=== PATIENT | female | born 1990 | race Caucasian/White ===

== ENCOUNTER 2019-07-24 01:24 | Day surgery (SDC) | payer OTHER, SELFPAY ==
[2019-07-09 09:53] VITALS: BMI 25.3
[2019-07-24 10:15] VITALS: BP 104/60; PULSE 55; RESP 18; TEMP 36.9; O2SAT 100
--- NOTE | 2019-07-24 11:09 | WPDANESEPPF ---
Anes - Initial Pre Proc Eval Procedure: Operation Date: 07/24/19 12:00 Proposed Procedures p Bilateral Breast Mastopexy - Valdo Barnard MD s Bilateral Breast Implant Exchange - Valdo Barnard MD Date/Time: 07/24/19 11:09 Surgeon: Valdo Barnard MD Pre Op Diagnosis: History Of Breast Augmentation Patient Data Age: 28 Gender: F Height: 5 ft 4 in Weight: 67 kg Allergies Allergy/AdvReac Type Severity Reaction Status Date / Time Sulfa (Sulfonamide Allergy Mild Rash Verified 07/24/19 11:06 Antibiotics) Home Medications Medication Instructions Recorded Confirmed Type carisoprodol 350 mg tablet 350 mg PO TID PRN #21 tablet 07/23/19 Rx docusate sodium 100 mg capsule 100 mg PO DAILY #14 cap 07/23/19 Rx ondansetron HCl 4 mg tablet 4 mg PO Q8H #28 tablet 07/23/19 Rx oxycodone-acetaminophen 5 mg-325 1 tablet PO Q6H PRN #15 tablet 07/23/19 Rx mg tablet Patient hx anesthesia problems: none Family hx anesthesia problems: none [facility] Social History Social History Smoking status: Never smoker Alcohol intake: current Gender identity (if verbalized by the patient): Female Anes - Eval Final PreProcedure Day of Procedure 07/24/19 11:09 Patient weight: normal Heart: regular rate and rhythm Lungs: clear to auscultation Airway: Mallampati scale class II Neurological: alert and oriented Last oral intake: >/= 8 hours ASA classification: I Emergent: no Anesthetic plan: proceed Anesthesia type and monitoring: general LMA and standard monitoring Informed Consent: The patient's anesthetic plan and its attendant risks and benefits were discussed with the patient/family/POA. Questions were solicited and answers provided to the satisfaction of the patient/family/POA.
[2019-07-24] MEDS: LACTATED RINGERS 500 ML 999 ML IV CONT (11:13)
[2019-07-24] MEDS: LACTATED RINGERS 1,000 ML 30 ML IV CONT ×2 (11:30→15:30)
--- NOTE | 2019-07-24 11:34 | WPDHPUPDATE1 ---
History and Physical Update Update Date/Time: 07/24/19 11:34 History and Physical has been reviewed, including an updated exam of the patient. There are NO changes in the patient's condition. Risks, benefits, and alternatives have been discussed and questions answered. Patient agrees to proceed with procedure.
[2019-07-24 11:49] LABS: Urine Cotinine NEGATIVE
--- NOTE | 2019-07-24 11:55 | P.OP_ITS ---
Procedure Note - Detailed Date of procedure: 07/24/19 Pre-op diagnosis: History Of Breast Augmentation Post-op diagnosis: same Procedure performed: Bilateral implant exchange / revision mastopexy Description of procedure: She is here today for bilateral implant exchange / revision mastopexy. Previously and again today the risks, benefits, alternatives were discussed in extensive detail. I wanted her to be very realistic about the risks involved as well as expectations. We discussed aftercare and what to monitor for. A large portion of this conversation involves realistic expectations of outcome and there will be recurrence of ptosi s. Further risk of nipple sensation change or loss. Made sure answered all of her questions to her satisfaction today and consent was obtained. Marked in the preoperative holding area with their verification. The patient was taken to the operating room placed supine on the operating table. Anesthesia was provided by anesthesiology. A surgical time-out was taken. We cleansed the skin and 1% lidocaine and 0.25% Marcaine with epinephrine was used anesthetize as a field block. She was prepped and draped in a standard sterile fashion. Tegaderm nipple Serrato were placed. I incised vertically down the breast. This continued until the capsule was identified. I elevated around the capsule and removed the majority of the capsule. I then incised and identified the implant. She did have a double capsule and as such I did send this to pathology as they requested. I irrigated with a total of 3 L of saline containing solution on TUR tubing and verified hemostasis. I then incised the pectoralis major along its inferior border. I elevated create a subpectoral pocket the appropriate dimensions for the implant based on preoperative planning. I again copiously irrigated with saline solution. Verified strict hemostasis. I then tacked the pectoralis major to the anterior breast using a 2-0 Vicryl. Next the use a triple antibiotic and Betadine containing solution to irrigate the pocket. I washed my gloves with the triple antibiotic and Betadine solution. We washed the implant immediately upon opening it with this solution and only opened it when we needed it. I used implant funnel and no-touch technique. The implant was introduced into the pocket using the funnel. Having verified positioning of the implant this was closed using 2-0 Vicryl. I tailor tacked the breast into place. I placed her in a sitting position and marked out the nipple-areolar complex at 38 mm. This location was based on my preoperative planning intraoperative measurements and observations which were all in full agreement. I then placed her supine. I de-epithelialized the superior pedicle. She really needed minimal motion of the nipple-areolar complex. I then removed the skin along the IMF location for planned removal and a central keel of tissue to recreate medial and lateral pillar on both sides. She had a little more glandular ptosis on the right preoperatively and this was noted to her. I closed with 2-0 Vicryl followed by 3-0 strata fix along the IMF. 3-0 Monocryl vertically and around the nipple-areolar complex. I then ran everything with a running subcuticular 4-0 Monocryl and tissue glue. I put in a sitting position to verify the final result. Fluffs, Diaz wrap, and surgical bra were placed. Patient was awoke and taken to PACU without difficulty. All instrument sponge counts were correct at the end of the case. Surgeon: Valdo Barnard MD
[2019-07-24] MEDS: ceFAZolin 2 GM/D5W 50 ML 2 GM/50 ML BAG IVPB (11:58)
[2019-07-24] MEDS: LIDO 1%/EPINEPHRINE 1:100,000 20 ML VIAL 80 ML INFILTRATE (12:27)
--- NOTE | 2019-07-24 15:05 | SUR.OPER ---
EBL 50ml
[2019-07-24 15:30] VITALS: BP 107/69; PULSE 82; RESP 15; TEMP 30.6; O2SAT 100
[2019-07-24 15:45] VITALS: BP 106/72; PULSE 93; RESP 15; O2SAT 100
[2019-07-24 16:00] VITALS: BP 101/69; PULSE 66; RESP 12; O2SAT 100
[2019-07-24 16:05] VITALS: BP 111/67; BP 111/71; PULSE 57; PULSE 66; RESP 12; RESP 14
[2019-07-24] MEDS: ONDANSETRON INJ 4 MG/2 ML VIAL IV PUSH (16:06)
[2019-07-24 16:55] VITALS: BP 99/64; PULSE 64; RESP 14
== END 2019-07-24 17:03 | disposition home or self-care (01) ==
PROVIDERS: Anesthesiology; Visit Provider Surgery Plastic and Reconstructive Surgery
PROC: (CPT 19316; principal; 2019-07-24 12:00)
PROC: (CPT 19342; 2019-07-24 12:00)
DX: Z41.1 Encounter for cosmetic surgery (principal); N64.81 Ptosis of breast
CPT/HCPCS: 19371; 19325; 19316; 36415; 80307; 88300; 88304; J0131; J0690; J1100; J1580; J2250; J2405; J2704; J3010; J7030; J7120